=== PATIENT | male | born 1990 | race Caucasian/White ===

== ENCOUNTER 2020-10-21 10:47 | Outpatient (CLI) | payer OTHER, SELFPAY ==
--- NOTE | ~2020-10-21 | MR_ITS ---
EXAMINATION: MR brain/brain stem wo con DATE: 10/21/2020 12:50 INDICATION: Memory loss. Head tingling. Aphasia. TECHNIQUE: Magnetic resonance imaging (MRI) of the brain and brainstem was performed without intraven ous contrast. Sequences included sagittal and axial T1-weighted FSE, axial diffusion-weighted FS EPI, axial T2*-weighted GRE, axial T2-weighted FLAIR Propeller, and axial T2-weighted Propeller. Apparent diffusion coefficient (ADC) maps were created. COMPARISON: None. FINDINGS: The cerebellar tonsils extend 11 mm inferior to foramen magnum, consistent with Chiari 1 ma lformation. There is no intracranial hemorrhage, acute infarction, or abnormal intracranial mass lesi on. The ventricles are normal in size. There is mild mucosal thickening in the paranasal sinuses. The orbits are normal. The mastoid air cells are normal. IMPRESSION: 1. Chiari 1 malformation. Reviewed, dictated and finalized at location B. IMPRESSION: 1. Chiari 1 malformation.
== END 2020-10-21 10:48 | disposition home or self-care (01) ==
PROVIDERS: PCP Family Medicine; Visit Provider Family Medicine
DX: R41.3 Other amnesia (principal); G93.5 Compression of brain
CPT/HCPCS: 70551

== ENCOUNTER 2021-04-11 15:29 | Emergency (ER) | payer OTHER, SELFPAY ==
[2021-04-11] VITALS (7 sets, daily range): BP systolic 116–147; BP diastolic 67–92; PULSE 60–84; RESP 16–22; TEMP 36.7; O2SAT 97–100
--- NOTE | ~2021-04-11 | CT_ITS ---
EXAMINATION: CT brain wo con DATE: 04/11/2021 16:17 INDICATION: Syncope. TECHNIQUE: Computed tomography (CT) of the head was performed without intravenous contrast. The mA wa s adjusted according to patient size. Iterative reconstruction technique was employed. The dose-lengt h product was 605.33 mGy-cm. COMPARISON: Brain MRI 10/21/2020 FINDINGS: The cerebellar tonsils extend 9 mm inferior to foramen magnum, consistent with Chiari 1 mal formation. There is no intracranial hemorrhage, acute infarction, or abnormal intracranial mass lesio n. The ventricles are normal in size. There is mild mucosal thickening in the paranasal sinuses. The mastoid air cells are normal. IMPRESSION: 1. Chiari 1 malformation. Reviewed, dictated and finalized at location A. REPRESENTATIVE IMPRESSION: 1. Chiari 1 malformation.
--- NOTE | ~2021-04-11 | XR_ITS ---
EXAMINATION: XR chest 2V DATE: 04/11/2021 16:12 INDICATION: Syncope. TECHNIQUE: Frontal and lateral views of the chest were obtained on 3 radiographs. COMPARISON: None. FINDINGS: A calcified right lung nodule is consistent with old granulomatous disease. No pleural effu venkatesh or pneumothorax. The heart size is normal. IMPRESSION: 1. No acute cardiopulmonary disease. Reviewed, dictated and finalized at location A. TRICAL POWER STATION TECHNICIAN
--- NOTE | 2021-04-11 15:56 | ECG_ITS ---
Measurements Intervals [place] Rate: 85 P: 62 MI: 154 QRS: 44 QRSD: 98 T: -29 QT: 352 QTc: 419 Interpretive Statements SINUS RHYTHM WITH SINUS ARRHYTHMIA BORDERLINE ST-T WAVE ABNORMALITY- INFERIOR LEADS BASELINE ARTIFACT- I, II, III, AVL, AVF, V1, V3-V6 BORDERLINE ECG Electronically Signed On 04-12-2021 8:44:16 ENGINEERING EXECUTIVE by Reza Hunt D.O.
--- NOTE | 2021-04-11 16:06 | ED.GENADULT ---
HPI - General Adult General Chief complaint: Unspecified Stated complaint: syncopal episode Time Seen by Provider: 04/11/21 15:37 Source: patient Mode of arrival: ambulatory Limitations: no limitations History of Present Illness HPI narrative: Patient presents for evaluation of questionable syncopal episode. He indicates he was playing video games at home today when he felt funny and then his vision went black. He was sitting next to his at this time and she informed him that the episode lasted a few seconds. He experienced nausea, got up off of the couch and walked down the hallway. He then found himself on the ground. He did not hit his head or sustain any injury. He states that he fell with his hands beneath him. Once again he was out for a few seconds. He believes that his symptoms are related to caffeine intake. He exhibits bizarre behavior during my initial evaluation. He states that he previously used cough syrup until the age of 18. He states that he then began drinking heavily on a daily basis. He quit drinking about 5 years ago because he was experiencing left-sided chest pain. He then thought certain foods were making him sick , although he cannot inform me what specific symptoms he has experienced. He states that as of late every time that he consumes caffeine he feels like his brain is crunching . Today he consumed caffeine prior to the time of the questionable syncopal events. He denies any chest pain or shortness of breath at the present time or preceding the events which led to his ER presentation. Currently he feels some tingling in his bilateral feet but otherwise states that he feels well. He states that recently he had a CT of his head and was told he had a Chiari malformation. He was referred to neurology and has an EEG that he needs to have performed. Review of Systems Review of Systems: CONSTITUTIONAL: Denies fever, chills, or sweats. EYES: Denies visual changes, redness, or discharge. ENT: Denies rhinorrhea, congestion, sore throat, or otalgia. CARDIOVASCULAR: Denies chest pain, palpitations, or edema. RESPIRATORY: Denies cough or dyspnea. GASTROINTESTINAL: Denies abdominal pain, nausea, vomiting, or diarrhea. GENITOURINARY: Denies dysuria or hematuria. SKIN: Denies rash or itching. MUSCULOSKELETAL: Denies back pain, joint pain, or myalgia. NEUROLOGIC: Reports tingling in bilateral feet. Reports questionable syncopal episode x 2 today. Reports sensation that his head is crunching . Denies headache, numbness, dizziness, or weakness. PSYCHIATRIC: Denies anxiety or depression. 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 HEAD: Normocephalic, atraumatic. EYES: PERRLA and EOMI. ENT: Nares clear, no rhinorrhea or epistaxis. Mucous membranes moist. Oropharynx without tonsillar hypertrophy exudate or other lesions. Bilateral TMs pearly hale nonbulging NECK: Supple. No adenopathy or masses. No carotid bruits or JVD CHEST: Clear to auscultation. No respiratory distress. No wheezes rales or rhonchi HEART: Regular rate and rhythm. No murmur heard. Normal peripheral pulses. ABDOMEN:
[2021-04-11 16:36] LABS: Basophils Percent Auto 0.6 % (0.2-1.2); Eosinophils Absolute Auto 0.1 K/mm3 (0-0.3); Eosinophils Percent Auto 3.4 % (0-4.4); Hematocrit 44.6 % (42.0-52.0); Hemoglobin 15.6 g/dL (14.0-18.0); Immature Granulocyte Absolute 0.01 K/mm3 (0.00-0.031); Immature Granulocyte Percent A 0.3 % (0-0.5); Lymphocytes Absolute Auto 1.09 K/mm3 (0.9-3.2); Lymphocytes Percent Auto 33.5 % (18.3-44.2); Mean Corpuscular Hemoglobin 30.6 pg (26-34); Mean Corpuscular Volume 87.6 fl (80-100); Mean Platelet Volume 10.1 fl (7.4-10.4); Monocytes Absolute Auto 0.3 K/mm3 (0.1-0.6); Monocytes Percent Auto 9.2 % (2.6-8.5); Neutrophils Absolute Auto 1.7 K/mm3 (1.3-6.7); Platelet Count Result 166 k/mm3 (150-375); Red Blood Count 5.09 M/mm3 (4.6-6.20); Red Cell Distribution Width 11.4 % (11.5-14.5); White Blood Count 3.3 K/mm3 (4.5-10.0)
[2021-04-11 16:42] LABS: Add Urine Microscopic? NO; Appearance Urine Clear (Clear); Bilirubin Urine Negative (Negative); Blood Urine Negative (Negative); Color Urine Yellow (Yellow); Glucose Urine UA Negative (Negative); Ketones Urine Negative (Negative); Leukocyte Esterase Ur Negative LEU/UL (Negative); Nitrate Urine Negative (Negative); Protein Urine Negative (Negative); Specific Grav Ur 1.017 (1.001-1.035); Urobilinogen Urine Negative mg/dL (<2.0)
[2021-04-11 16:57] LABS: Alanine Aminotransferase 29 U/L (4-50); Albumin Level 4.8 g/dL (3.5-5.1); Alkaline Phosphatase 56 U/L (38-126); Anion Gap 7 mmol/L (8-16); Aspartate Amino Transferase 28 U/L (17-59); Bilirubin,Total 0.6 mg/dL (0.2-1.3); Blood Urea Nitrogen 19 mg/dL (9-20); Calcium 9.9 mg/dL (8.4-10.2); Carbon Dioxide 30 mmol/L (22-30); Chloride 102 mmol/L (98-107); Estimated CRCL calculation 94 ml/min; Estimated Glomerular Filt Rate > 60; Glucose 107 mg/dL (65-110); Potassium 4.7 mmol/L (3.4-5.0); Sodium 139 mmol/L (137-145)
[2021-04-11 17:01] LABS: Amphetamine Screen Urine Negative (Negative); Barbiturate Screen Urine Negative (Negative); Benzodiazepines Screen Urine Negative (Negative); Cannabinoid Screen Urine Negative (Negative); Cocaine Screen Urine Negative (Negative); Methadone Screen Urine Negative (Negative); Opiate Screen Urine Negative (Negative); Phencyclidine Screen Urine Negative (Negative)
[2021-04-11 17:39] LABS: Troponin I < 0.012 ng/mL (0.000-0.034)
[2021-04-11 19:09] LABS: Troponin I < 0.012 ng/mL (0.000-0.034)
== END 2021-04-11 20:35 | disposition home or self-care (01) ==
PROVIDERS: Emergency Provider Nurse Practitioner; PCP Family Medicine
DX: R55 Syncope and collapse (principal); G93.5 Compression of brain
CPT/HCPCS: 36415; 70450; 71046; 80053; 80307; 81003; 84484; 85025; 93005; 99284

== ENCOUNTER 2022-02-17 02:36 | Emergency (ER) | payer OTHER, SELFPAY ==
[2022-02-17] VITALS (7 sets, daily range): BP systolic 106–140; BP diastolic 76–94; PULSE 66–92; RESP 16–20; TEMP 36.2; O2SAT 97–99
--- NOTE | 2022-02-17 03:19 | ECG_ITS ---
Measurements Intervals [place] Rate: 68 P: 51 LA: 174 QRS: 41 QRSD: 101 T: 27 QT: 364 QTc: 388 Interpretive Statements SINUS RHYTHM WITH SINUS ARRHYTHMIA NONSPECIFIC ST & T-WAVE ABNORMALITY- INF/LAT LEADS BASELINE ARTIFACT- I, II, III, AVR, AVL, AVF, V5-V6 BORDERLINE ECG COMPARED TO ECG 04/11/2021 15:41:58 NO SIGNIFICANT CHANGES Electronically Signed On 02-17-2022 6:58:44 CDT by Reza Hunt D.O.
[2022-02-17 03:54] LABS: Basophils Percent Auto 0.6 % (0.2-1.2); Eosinophils Absolute Auto 0.2 K/mm3 (0-0.3); Eosinophils Percent Auto 4.1 % (0-4.4); Hematocrit 45.2 % (42.0-52.0); Hemoglobin 15.2 g/dL (14.0-18.0); Immature Granulocyte Absolute 0.02 K/mm3 (0.00-0.031); Immature Granulocyte Percent A 0.4 % (0-0.5); Lymphocytes Absolute Auto 2.23 K/mm3 (0.9-3.2); Lymphocytes Percent Auto 45.3 % (18.3-44.2); Mean Corpuscular HGB Conc 33.6 g/dl (32-36); Mean Corpuscular Hemoglobin 29.8 pg (26-34); Mean Corpuscular Volume 88.6 fl (80-100); Monocytes Absolute Auto 0.5 K/mm3 (0.1-0.6); Monocytes Percent Auto 9.1 % (2.6-8.5); Neutrophils Percent Auto 40.5 % (45.5-73.1); Platelet Count Result 195 k/mm3 (150-375); Red Cell Distribution Width 11.9 % (11.5-14.5); White Blood Count 4.9 K/mm3 (4.5-10.0)
[2022-02-17 04:00] LABS: Appearance Urine Clear (Clear); Bilirubin Urine Negative (Negative); Blood Urine Negative (Negative); Color Urine Yellow (Yellow); Glucose Urine UA Negative (Negative); Ketones Urine Negative (Negative); Leukocyte Esterase Ur Negative LEU/UL (Negative); Nitrate Urine Negative (Negative); Protein Urine Negative (Negative); Specific Grav Ur 1.015 (1.001-1.035); Urobilinogen Urine 0.2 mg/dL (<2.0)
[2022-02-17 04:05] LABS: WBC Urine 0-3 /hpf
[2022-02-17 04:08] LABS: Add Urine Microscopic? NO
[2022-02-17 04:10] LABS: Alanine Aminotransferase 25 U/L (6-50); Albumin Level 4.6 g/dL (3.5-5.1); Alkaline Phosphatase 70 U/L (38-126); Anion Gap 10 mmol/L (8-16); Aspartate Amino Transferase 24 U/L (17-59); Bilirubin,Total 0.3 mg/dL (0.2-1.3); Blood Urea Nitrogen 22 mg/dL (9-20); Calcium 9.5 mg/dL (8.4-10.2); Carbon Dioxide 26 mmol/L (22-30); Chloride 104 mmol/L (98-107); Estimated CRCL calculation 93 ml/min; Estimated Glomerular Filt Rate > 60; Glucose 90 mg/dL (65-110); Potassium 3.7 mmol/L (3.4-5.0); Sodium 140 mmol/L (137-145)
--- NOTE | 2022-02-17 05:51 | ED.GENADULT ---
HPI - General Adult General Chief complaint: Unspecified Stated complaint: dizziness Time Seen by Provider: 02/17/22 04:59 Source: patient and RN notes reviewed Mode of arrival: ambulatory Limitations: no limitations History of Present Illness HPI narrative: This is a 31 year old male with history of anxiety who presents for evaluation of episode of dizziness. PAtient states he has these intermittent episodes in which he starts yawning and then he becomes dizzy. He also reports he feels this mcmahon like energy is leaving him. He states had feeling that something bad was going to happen. HE woke up his significant other and he states he couldn't get the words out, and he was shaky. This episode lasted 20 minutes and now he feels completely fine. He has a neurologist that he sees for these symptoms. He has had CT BRain and MRI. Related Data Allergies Allergy/AdvReac Type Severity Reaction Status Date / Time No Known Allergies Allergy Verified 02/17/22 02:53 Review of Systems Review of Systems: CONSTITUTIONAL: Denies fever, chills, or sweats. EYES: Denies visual changes, redness, or discharge. ENT: Denies rhinorrhea, congestion, sore throat, or otalgia. CARDIOVASCULAR: Denies chest pain, palpitations, or edema. RESPIRATORY: Denies cough or dyspnea. GASTROINTESTINAL: Denies abdominal pain, nausea, vomiting, or diarrhea. GENITOURINARY: Denies dysuria or hematuria. SKIN: Denies rash or itching. MUSCULOSKELETAL: Denies back pain, joint pain, or myalgia. NEUROLOGIC: Denies headache, numbness, or weakness. PSYCHIATRIC: Denies depression. 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 HEAD: Normocephalic, atraumatic EYES: PERRLA and EOMI, conjunctiva clear without discharge EARS: TM's clear bilaterally without erythema or dullness NOSE: Nares clear, no rhinorrhea or epistaxis THROAT:Mucous membranes moist, Oropharynx normal without erythema, exudate, peritonsillar swelling or fluctuance NECK: Supple, without lymphadenopathy or mass RESPIRATORY: No respiratory distress, Airway patent, Respirations non-labored, Clear to auscultation without rales, rhonchi or wheeze HEART: Regular rate and rhythm. No murmur heard. Normal peripheral pulses. ABDOMEN: Soft, nontender, nondistended, normal active bowel sounds. No masses. No rebound or guarding, No organomegaly. EXTREMITIES: No edema, normal strength with full range of motion. SKIN: Warm, dry, normal color without rash NEURO: Alert and oriented x3. CN 2-12 grossly intact. No focal deficits. PSYCH: Normal mood and affect. Course Reevaluation(s) Reevaluation #1: Patient reports he has not symptoms now. His exam is normal. He may be having anxiety. I do not think he needs imaging at this сергей Date: 02/17/22 Time: 05:54 Vital Signs Vital signs: Vital Signs Temperature 97.1 F L 02/17/22 02:49 Pulse Rate 92 02/17/22 02:49 Respiratory Rate 16 02/17/22 02:49 Blood Pressure 123/90 02/17/22 02:49 Pulse Oximetry 99 02/17/22 02:49 Oxygen Delivery Room Air 02/17/22 02:49 Temperature 97.1 F L 02/17/22 02:49
== END 2022-02-17 06:09 | disposition home or self-care (01) ==
PROVIDERS: Emergency Provider General Practice
DX: R42 Dizziness and giddiness (principal); R94.31 Abnormal electrocardiogram [ECG] [EKG]
CPT/HCPCS: 36415; 80053; 81003; 85025; 93005; 99283